=== PATIENT | male | born 1975 | race Caucasian/White ===

== ENCOUNTER 2021-01-11 12:22 | Emergency (ER) | payer OTHER ==
[2021-01-11 12:55] LABS: BASOPHIL 0.7 % (0-2); EOSINOPHIL 1.9 % (0-5); HCT 48.7 % (42.0-52.0); HGB 16.1 g/dl (13.2-18.0); LYMPHOCYTE 21.8 % (15-48); MCH 29.3 pg (25.0-31.0); MCHC 33.1 g/dL (32.0-36.0); MCV 88.7 fL (78.0-100.0); MONOCYTE 6.2 % (0-12); MPV 10.2 fL (6.0-9.5); NEUTROPHIL 68.9 % (41-80); NRBC 0; PLT 314 K/uL (150-400); RBC 5.49 M/uL (4.70-6.00); RDW 15.6 % (11.5-14.0); WBC 12.6 K/uL (4.0-10.5)
[2021-01-11 13:24] LABS: BILIRUBIN NEGATIVE (NEGATIVE); BLOOD NEGATIVE Ery/uL (NEGATIVE); CLARITY CLEAR (CLEAR); COLOR YELLOW (YELLOW); GLUCOSE (U) NORMAL (NORMAL); LEUKOCYTES NEGATIVE Leu/uL (NEGATIVE); NITRITE NEGATIVE (NEGATIVE); PROTEIN NEGATIVE (NEGATIVE); SPECIFIC GRAVITY 1.025 (1.001-1.030); UROBILINOGEN 0.2 mg/dL (0.2-1.0)
[2021-01-11 13:27] LABS: AMPHETAMINES NEGATIVE (NEGATIVE); BARBITURATES NEGATIVE (NEGATIVE); ECSTASY (MDMA) NEGATIVE (NEGATIVE); MARIJUANA (THC) NEGATIVE (NEGATIVE); METHADONE NEGATIVE (NEGATIVE); OPIATES NEGATIVE (NEGATIVE); OXYCODONE NEGATIVE (NEGATIVE)
[2021-01-11 13:35] LABS: ACETAMINOPHEN (TYLENOL) < 2.0 ug/mL (10.0-30.0); ALKALINE PHOSHATASE 81 U/L (46-116); ALT 65 U/L (16-63); AST 39 U/L (15-37); BILIRUBIN - TOTAL 0.5 mg/dL (0.2-1.0); BUN 16 mg/dL (7-18); BUN/CREAT RATIO (CALC) 19.8 RATIO; CHLORIDE 108 mmol/L (98-107); CO2 (BICARBONATE) 26 mmol/L (21-32); CREATININE 0.81 mg/dL (0.67-1.17); GLOBULIN (CALCULATION) 3.5 g/dL; GLUCOSE 114 mg/dL (74-106); TOTAL PROTEIN 6.5 g/dL (6.4-8.2)
== END 2021-01-12 17:25 | disposition home or self-care (01) ==
LOC: FER 12:22
PROVIDERS: Internal Medicine
DX: F20.0 Paranoid schizophrenia (principal); F31.9 Bipolar disorder, unspecified; J45.909 Unspecified asthma, uncomplicated; F17.210 Nicotine dependence, cigarettes, uncomplicated; Z88.8 Allergy status to other drugs, medicaments and biological substances; Z20.822 Contact with and (suspected) exposure to COVID-19
CPT/HCPCS: 36415; 80053; 80305; 81003; 85025; G0480; J3486; U0002